=== PATIENT | female | born 1955 | race Caucasian/White ===

== ENCOUNTER → 2019-02-16 | Day surgery (SDC) | payer BC ==
[~2019-02-16] MED LIST: Lactated Ringers 1,000 ML IV SCH; Lactated Ringers 1,000 ML ONE; Meperidine PF 50 MG/ML Syringe IV ONE; Midazolam 1 MG/ML 2 ML SDV IV ONE
[2019-02-16 13:45] VITALS: BP 92/52
--- NOTE | 2019-02-16 19:19 | OR ---
DATE OF OPERATION: 02/16/2019 PREOPERATIVE DIAGNOSIS: HEMATOCHEZIA. POSTOPERATIVE DIAGNOSIS: HEMATOCHEZIA. SURGEON: Marcus Pablo MD PROCEDURE: DIAGNOSTIC COLONOSCOPY. ANESTHESIA: Conscious sedation with 6 mg Versed and 50 mg Demerol with continuous O2 saturation monitoring and nurse assist. Patient's saturation never dropped below 90. COMPLICATIONS: None. SPECIMEN: None. FINDINGS: 1. Full-length colonoscopy. 2. Mild distal sigmoid diverticulosis without active inflammation or bleeding. 3. Minimal perianal hemorrhoidal disease. RECOMMENDATIONS: Routine medical followup. Routine colonoscopy every 10 years. INDICATIONS: The patient is a 63-year-old, whose last colonoscopy was in 2012. She presented to my office with some very infrequent but occasional hematochezia, usually noticing this after wiping after going to the bathroom. We elected to proceed with diagnostic colonoscopy. DESCRIPTION OF PROCEDURE: The patient was prepped and draped, placed in the left lateral decubitus position. A lubricated Olympus colonoscope was inserted and easily advanced to the cecum. Direct visualization of the ileocecal valve and appendiceal orifice was accomplished. The bowel prep was excellent. Upon withdrawal of the scope, the cecum, ascending, transverse, and descending colons were completely unremarkable. Most of the sigmoid colon was benign. In the mid sigmoid and most notably in the distal sigmoid and the rectosigmoid junction, patient had some very mild diverticulosis. No acute inflammatory changes were seen and no active bleeding. Throughout the entire length of the colon, I could find no signs of any polyps, masses, ulcerations, or bleeding sites. No vascular abnormalities or signs of colitis. The rectal vault was benign. Retroflexion of scope in the rectum showed minimal perianal hemorrhoidal tissue and no bleeding as well. Air was then suctioned from the colon. The scope was removed without complication. JOHN/GILBERTO /[id number]
== END ==
LOC: CC.SDS 11:24
PROVIDERS: ATTEND Family Medicine
DX: K57.31 Diverticulosis of large intestine without perforation or abscess with bleeding (principal); K64.4 Residual hemorrhoidal skin tags; I10 Essential (primary) hypertension; E78.00 Pure hypercholesterolemia, unspecified; E03.9 Hypothyroidism, unspecified; H26.9 Unspecified cataract; Z88.5 Allergy status to narcotic agent; Z79.899 Other long term (current) drug therapy
CPT/HCPCS: 45378; J2175; J2250; J7120